=== PATIENT | male | born 1950 | race Caucasian/White ===

== ENCOUNTER 2016-12-08 23:39 | Emergency (ER) | payer MEDICARE ==
[~2016-12-08] VITALS: Ht 172.7 cm; Wt 86.4 kg
[2016-12-08] MEDS ORDERED: GABA-529 PO (23:41)
[2016-12-08] MEDS ORDERED: DSS100 PO (23:41)
[2016-12-08] MEDS ORDERED: SIMV-259 PO (23:41)
[2016-12-09] MEDS ORDERED: PredniSONE 20 MG TABLET PO ONE (00:30)
[2016-12-09] MEDS ORDERED: DiphenhydrAMINE HCL 25 MG CAPSULE PO ONE (00:30)
[2016-12-09 00:31] VITALS: BP 156/70
== END 2016-12-09 00:41 | disposition home or self-care (01) ==
LOC: EMS 23:41
DX: T42.6X5A Adverse effect of other antiepileptic and sedative-hypnotic drugs, initial encounter (principal); I10 Essential (primary) hypertension; E78.00 Pure hypercholesterolemia, unspecified; Z88.0 Allergy status to penicillin; Z88.1 Allergy status to other antibiotic agents; Y92.89 Other specified places as the place of occurrence of the external cause
CPT/HCPCS: 99283; J7512